=== PATIENT | male | born 1935 | race Caucasian/White ===

== ENCOUNTER 2018-09-11 20:49 | Inpatient (IN) ==
--- NOTE | 2018-09-11 21:03 | ERNOTE ---
Lower Extremity HPI - General Lower Extremities Pain: hip: right - pain Time Seen by Provider: 09/11/18 20:53 Source: patient Exam Limitations: no limitations - Immun/Allergies/Home Medications Immunizations: IMMUNIZATION HX Immunizations Up to Date Yes History of Influenza Vaccine Yes Hx Pneumococcal Vaccination No Allergies/Adverse Reactions: Allergies Allergy/AdvReac Type Severity Reaction Status Date / Time No Known Allergies Allergy Verified 09/11/18 21:05 Home Medications: HOME MEDICATIONS Atorvastatin Calcium [Lipitor] 80 mg PO DAILY 04/10/12 [Last Taken Unknown] amLODIPine BESYLATE [Norvasc] 20 mg PO DAILY 04/10/12 [Last Taken Unknown] Cholecalciferol (Vitamin D3) [Vitamin D3] 1,000 unit PO DAILY 01/29/15 [Last Taken Unknown] aspirin 81 mg tablet,delayed release 81 mg PO DAILY 03/25/18 [Last Taken Unknown] losartan 50 mg-hydrochlorothiazide 12.5 mg tablet 1 tab PO DAILY 03/25/18 [Last Taken Unknown] trazodone 100 mg tablet 100 - 200 mg PO HS tab 03/25/18 [Last Taken Unknown] tramadol 50 mg tablet 100 mg PO QID #240 tab 07/31/18 [Last Taken Unknown] - History of Present Illness Narrative: Pt was out in the barn and fell on his right hip. He was unable to get up and lay on the ground for over an hour before his came out to check on him. EMS scooped him up and gave him 100 mcg fenanyl IM due to being unable to establish IV access. Occurred: this evening Location of Incident: home Method of Injury: Reports: fell Reason for Fall: Reports: tripped Loss of Consciousness: Reports: no loss of consciousness Modifying Factors - (Improves): Reports: pain medication Modifying Factors - (Worsens): Reports: jarring, movement Associated Symptoms: Reports: unable to bear weight Other Injuries: Reports: extremities - right elbow skin tear Review of Systems - Review of Systems Constitutional: Absent: recent illness, fever EYE: Absent: vision changes ENT: Absent: nose congestion, nasal drainage Respiratory: Absent: shortness of breath Cardiology: Absent: chest pain Gastrointestinal/Abdominal: Absent: nausea, vomiting Musculoskeletal: Present: See HPI. Absent: back pain Skin: Present: change in color, other - abrasion/ skin tear Neurological: Absent: weakness, numbness, tingling Medical History (Updated 07/08/18 @ 10:43 by Layla Merritt RN) TIA (transient ischemic attack) (Resolved) Onset Date: ~07/2003 Peroneal tendonitis of left lower extremity (Resolved) Onset Date: ~01/02/17 Palpitations (Resolved) Onset Date: ~04/05/13 Myocardial infarction (Resolved) Onset Date: ~1992 Ankle pain (Chronic) Onset Date: Unknown Insomnia (Chronic) Onset Date: Unknown Hypertension (Chronic) Onset Date: Unknown Hyperlipidemia (Chronic) Onset Date: Unknown Multinodular goiter (Acute) Onset Date: ~10/21/13 Glucose intolerance (Chronic) Onset Date: Unknown GERD (gastroesophageal reflux disease) (Chronic) Onset Date: Unknown Gastric ulcer (Resolved) Onset Date: Unknown Right forearm fracture (Resolved) Onset Date: ~10/17/14 Foot pain (Chronic) Onset Date: ~05/2015 Erectile dysfunction (Chronic) Onset Date: Unknown CAD (coronary artery disease) (Chronic) Onset Date: Unknown Bradycardia (Resolved) Onset Date: ~02/16/15 Angina pectoris (Resolved) Onset Date: ~12/28/03 AAA (abdominal aortic aneurysm) Surgical History: Surgical History (Updated 07/08/18 @ 10:32 by Layla Merritt RN) History of angioplasty Onset Date: ~1997 Balloon angioplasty History of appendectomy Onset Date: Unknown History of back surgery Onset Date: Unknown laminectomy History of bilateral knee replacement Onset Date: ~2006 History of cardiac catheterization Onset Date: Unknown History of cataract extraction Onset Date: ~10/2013 bilateral History of colonoscopy Onset Date: 03/08/05 03/08/05 Peasely diverticulosis left colon. Repeat 10yrs. History of femoral angiogram Onset Date: ~05/2001 Dr. Kelly-high grade lesion in the circumflex artery and 50% lesion in the left anterior descending History of foot surgery Onset Date: ~02/2017 left History of incision and drainage Onset Date: 03/09/17 left tendon-debridement/repair History of laminectomy Onset Date: Unknown History of meniscectomy of left knee Onset Date: 11/18/04 Ty History of open reduction and internal fixation (ORIF) procedure Onset Date: 10/06/14 distal radius and ulna right Dr. Kelly Figueroa History of tonsillectomy Onset Date: Unknown Family History: Family History (Updated 07/08/18 @ 10:34 by Layla Merritt RN) Mother , age 60-brain tumor Diabetes Cancer cancerous brain tumor-age 60 Father , age 94-old age Pacemaker Brother Heart disease Sister CVA (cerebral vascular accident) 2 sisters Social History: Preferred Language French Smoking Status Former smoker (Last Updated 07/08/18 @ 14:33 by Sendy Norton DO) No Social History Section defined Physical Exam - Physical Exam General Appearance: Present: wd/wn, alert, mild distress Head Exam: Present: normal inspection, no evidence of injury Eye Exam: Normal inspection: bilateral, PERRL: bilateral, EOMI: bilateral Neck: Present: normal inspection, nontender, supple Respiratory: Present: no respiratory distress, no accessory muscle use, chest nontender, lungs clear Cardiovascular/Chest: Present: regular rate, rhythm, no murmur, normal peripheral pulses Gastrointestinal/Abdominal: Present: normal bowel sounds, nontender, nondistended, soft Extremity Exam: Present: normal except -, decreased range of motion - right hip, bony tenderness - right hip. Absent: extremity edema Neurological Exam: Present: alert, oriented, normal mood/affect, no motor/sensory deficits Skin Exam: Present: normal color, warm/dry Lymphatic Exam: Present: no adenopathy Progress - Results and Orders Patient's Lab Results:: I have reviewed the patient's lab results. Results and Orders: Laboratory Tests 09/11/18 09/11/18 21:18 21:18 WBC 18.1 H Hgb 16.5 Hct 48.8 Plt Count 184 Neutrophils % 87.7 H Sodium 143 H Potassium 3.7 Chloride 105 BUN 20 Creatinine 1.07 Random Glucose 140 H Calcium 9.7 Total Bilirubin 1.0 AST 24 ALT 32 - Vital Signs Patient's Vital Signs:: I have reviewed the patient's vital signs. - Progress/Reassessment Progress Note-Subjective: 09/11/18 22:11 I spoke with James Whitten PA-C and he agrees with admission to medicine and consult orthopedics . 09/11/18 22:[address] Farooq and she agrees with admission. Departure Clinical Impression: Fracture of hip, right, closed Qualifiers: Encounter type: initial encounter Qualified Code(s): S72.001A - Fracture of unspecified part of neck of right femur, initial encounter for closed fracture - Departure Disposition: Still a patient Condition: Good
[2018-09-11] MEDS ORDERED: ONDANSETRON HCL/PF 2 MG/ML VIAL IV ONE (21:16)
[2018-09-11] MEDS ORDERED: MORPHINE SULFATE 4 MG/ML SYRG IV ONE (21:16)
[2018-09-11] MEDS ORDERED: ONDANSETRON HCL/PF 2 MG/ML VIAL ONE (21:17)
[2018-09-11] MEDS ORDERED: MORPHINE SULFATE 4 MG/ML SYRG ONE (21:17)
[2018-09-11 21:18] LABS: Hematocrit 48.8 % (42.0-52.0); Hemoglobin 16.5 gm/dL (13.5-18.0); Mean Cell Volume 88.6 fl (78-100); Mean Corpuscular Hemoglobin 29.9 pg (27-31); Mean Corpuscular Hgb Conc 33.8 g/dl (32-36); Mean Platelet Volume 10.2 fl (8-11.3); Neutrophil # 15.9 K/mm3 (1.3-6.0); Neutrophil % 87.7 % (42-75.0); Platelet Count 184 K/mm3 (150-450); Red Blood Count 5.51 M/mm3 (4.7-6.0); Red Cell Distribution Width 13.7 % (11.5-14.0); White Blood Count 18.1 K/mm3 (4.0-10.5)
[2018-09-11 21:31] LABS: Anion Gap 12.9 mmol/L (6.8-13.8); BUN/Creatinine Ratio 18.7 (9.0-21.6); Ca. Corrected For Albumin 9.4 mg/dL (8.4-10.2); Calcium * 9.7 mg/dL (7.9-10.9); Carbon Dioxide 28.8 mmol/L (24-32.6); Potassium 3.7 mmol/L (3.4-4.6); Total Protein 7.2 gm/dL (6.2-8.2)
[2018-09-11] MEDS ORDERED: MORPHINE SULFATE 2 MG/ML DISP.SYRIN IV ONE (22:01)
[2018-09-11] MEDS ORDERED: MORPHINE SULFATE 2 MG/ML DISP.SYRIN ONE (22:02)
[2018-09-11] MEDS: MORPHINE SULFATE 2 MG/ML DISP.SYRIN IV PRN (23:24)
[2018-09-12] MEDS: MORPHINE SULFATE 2 MG/ML DISP.SYRIN IV PRN ×6 (00:50→06:49)
[2018-09-12] MEDS: RINGER'S SOLUTION,LACTATED 1,000 ML IV PRN ×3 (05:32→13:41)
[2018-09-12] MEDS ORDERED: ceFAZolin SODIUM 1 GM VIAL IV PRN (06:00)
[2018-09-12] MEDS ORDERED: TRANEXAMIC ACID 1,000 MG in NORMAL SALINE 100 ML IV PRN (06:00)
[2018-09-12] MEDS: MORPHINE SULFATE 4 MG/ML SYRG IV PRN ×5 (08:57→23:10)
--- NOTE | 2018-09-12 09:06 | HP ---
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 Towards the end of last year in our emergency room, by CT scan and ultrasound, he was found to have thickening of his gallbladder wall, with no symptoms thereafter. Last evening while working in his barn doing chores, he tripped on a mat and fell directly onto his right hip. He immediately had severe pain which has persisted. He remained unattended in the barn for over an hour, until his came to check where he was. He was brought immediately to the emergency room, where diagnosis was made, and he was treated including pain medication. His pain this morning right now is 8 which he finds intolerable. His current medication drops the pain down to 7 which he also doesn't want to permit, and the pain relief only lasts about 20 minutes. He takes tramadol for chronic osteoarthritic pain, trazodone, losartanhydrochlorothiazide, aspirin and atorvastatin. His blood pressure now is well controlled. We will wait for the rest of medications until sometime after surgery. Medical History (Updated 09/11/18 @ 21:41 by Gigi Gabriel DO) TIA (transient ischemic attack) (Resolved) Onset Date: ~07/2003 Peroneal tendonitis of left lower extremity (Resolved) Onset Date: ~01/02/17 Palpitations (Resolved) Onset Date: ~04/05/13 Myocardial infarction (Resolved) Onset Date: ~1992 Ankle pain (Chronic) Onset Date: Unknown Insomnia (Chronic) Onset Date: Unknown Hypertension (Chronic) Onset Date: Unknown Hyperlipidemia (Chronic) Onset Date: Unknown Multinodular goiter (Acute) Onset Date: ~10/21/13 Glucose intolerance (Chronic) Onset Date: Unknown GERD (gastroesophageal reflux disease) (Chronic) Onset Date: Unknown Gastric ulcer (Resolved) Onset Date: Unknown Right forearm fracture (Resolved) Onset Date: ~10/17/14 Foot pain (Chronic) Onset Date: ~05/2015 Erectile dysfunction (Chronic) Onset Date: Unknown CAD (coronary artery disease) (Chronic) Onset Date: Unknown Bradycardia (Resolved) Onset Date: ~02/16/15 Angina pectoris (Resolved) Onset Date: ~12/28/03 AAA (abdominal aortic aneurysm) Surgical History: Surgical History (Updated 07/08/18 @ 10:32 by Layla Merritt RN) History of angioplasty Onset Date: ~1997 Balloon angioplasty History of appendectomy Onset Date: Unknown History of back surgery Onset Date: Unknown laminectomy History of bilateral knee replacement Onset Date: ~2006 History of cardiac catheterization Onset Date: Unknown History of cataract extraction Onset Date: ~10/2013 bilateral History of colonoscopy Onset Date: 03/08/05 03/08/05 Peasely diverticulosis left colon. Repeat 10yrs. History of femoral angiogram Onset Date: ~05/2001 Dr. Kelly-high grade lesion in the circumflex artery and 50% lesion in the left anterior descending History of foot surgery Onset Date: ~02/2017 left History of incision and drainage Onset Date: 03/09/17 left tendon-debridement/repair History of laminectomy Onset Date: Unknown History of meniscectomy of left knee Onset Date: 11/18/04 Ty History of open reduction and internal fixation (ORIF) procedure Onset Date: 10/06/14 distal radius and ulna right Dr. Kelly Figueroa History of tonsillectomy Onset Date: Unknown Family History: Family History (Updated 07/08/18 @ 10:34 by Layla Merritt RN) Mother , age 60-brain tumor Cancer cancerous brain tumor-age 60 Diabetes Father , age 94-old age Pacemaker Brother Heart disease Sister CVA (cerebral vascular accident) 2 sisters Social History: Patient Lives/Resources Home Utilized Occupation [employer] Preferred Language Belgian Do you have any gnosticist or Yes: Protastant cultural preference? Smoking Status Never smoker Have you smoked in the past 12 No months Do you dip or chew tobacco No Alcohol Use none Drug Use none (Last Updated 07/08/18 @ 14:33 by Sendy Norton DO) No Social History Section defined Review Of Systems (GEN) - Review of Systems Generalized/Overall Review: Present: No Symptoms Reported. Absent: Chills, Fever EENTM: Absent: Eye Pain, Blurred Vision, Ear Pain, Nose Congestion, Throat Pain Respiratory: Absent: Cough, Shortness of Breath, Orthopnea Cardiac: Absent: Chest Pain, Edema Abdominal: Absent: Nausea, Constipation, Diarrhea Genitourinary: Absent: Burning, Urgency Musculoskeletal: Present: Joint Pain, Back Pain, Neck Pain, Other - Chronic back pain. Acute right hip pain. Neurological: Absent: Headache, Numbness Skin: Absent: Dryness, Rash Endocrine: Absent: Intolerance to Cold, Intolerance to Heat Misc: All systems neg except as marked Immunizations: IMMUNIZATION HX Immunizations Up to Date Yes History of Influenza Vaccine Yes Hx Pneumococcal Vaccination Yes Allergies/Adverse Reactions: Allergies Allergy/AdvReac Type Severity Reaction Status Date / Time No Known Allergies Allergy Verified 09/11/18 21:05 Home Medications: HOME MEDICATIONS Atorvastatin Calcium [Lipitor] 80 mg PO DAILY 04/10/12 [Last Taken Unknown] amLODIPine BESYLATE [Norvasc] 20 mg PO DAILY 04/10/12 [Last Taken Unknown] Cholecalciferol (Vitamin D3) [Vitamin D3] 1,000 unit PO DAILY 01/29/15 [Last Taken Unknown] aspirin 81 mg tablet,delayed release 81 mg PO DAILY 03/25/18 [Last Taken Unknown] losartan 50 mg-hydrochlorothiazide 12.5 mg tablet 1 tab PO DAILY 03/25/18 [Last Taken Unknown] trazodone 100 mg tablet 100 - 200 mg PO HS tab 03/25/18 [Last Taken Unknown] tramadol 50 mg tablet 100 mg PO QID #240 tab 07/31/18 [Last Taken Unknown] Exam - Exam Vital Signs: Vital Signs - Last Taken Temp 36.9 C 09/12/18 07:00 Pulse 80 09/12/18 07:00 Resp 12 09/12/18 07:00 BP 119/70 09/12/18 07:00 Pulse Ox 93 09/12/18 07:00 Comprehensive Narrative: 09/12/18 08:55 On admission in the ER his white blood count was 18.1, with a normal differential. His hemoglobin was 16.5, and his blood pressure in the ER was 148/78. His chemistries were really normal, with a sodium of 143 and a random glucose of 140. His O2 sats on room air have all been normal, most recent 93%, with 1 drop to 91% at 3 AM today. He is afebrile. His vitals most recently are 119/70, pulse 80, and respirations 12. His IV intake thus far is 525 ML's. He is nothing by mouth. He has a Charles catheter. His urine output thus far is at 6 AM 200 MLS. Constitutional: Present: Alert, Oriented x3, Cooperative, Well developed, Well nourished ENT Exam: Present: normal ENT inspection, hearing grossly normal, pharynx normal Eye Exam: bilateral eye: normal inspection, PERRL, EOMI Neck: Present: normal inspection. Absent: lymphadenopathy (R), lymphadenopathy (L), tender midline, thyromegaly Back Exam: Present: normal inspection, no CVA tenderness, vertebral tenderness - Low back. Chronic. Also towards the left side. Midline. Breasts: Present: Exam deferred Respiratory: Present: lungs clear, normal breath sounds Cardiovascular/Chest: Present: normal peripheral pulses, regular rate, rhythm, no edema, no gallop, no JVD, no murmur Peripheral Pulses: carotid (R): 1+, carotid (L): 1+ Abdomen: Present: Normal bowel sounds, soft, nontender, nondistended, no rebound tenderness, no hepatospenomegaly, no masses /Rectal: Present: Exam deferred - Charles catheter in place Extremity: Present: no calf tenderness, normal capillary refill, other - Externally rotated right leg. Posterolateral right hip tenderness. No bruising. Skin Exam: Present: normal color, warm/dry, no cyanosis Lymphatic: Present: no adenopathy Neurologic: Present: no motor/sensory deficits, normal mood/affect Appearance: Present: appropriate appearance Eye contact: Present: cooperative, good eye contact, normal speech Thoughts: Present: normal thought pattern Diagnostic Studies: Abnormal Lab Results 09/11/18 09/11/18 Range/Units 21:18 21:18 WBC 18.1 H (4.0-10.5) K/mm3 Immature Gran # (Auto) 0.07 H (0.000-0.0310) K/mm3 Neutrophils % 87.7 H (42-75.0) % Lymphocytes % 5.2 L (20-51) % Neutrophils # 15.9 H (1.3-6.0) K/mm3 Lymphocytes # 0.95 L (1.5-3.5) k/mm3 Monocytes # 1.1 H (0.0-1.0) k/mm3 Sodium 143 H (132-142) mmol/L Plasma Sodium 144 H (130-142) mmol/L Random Glucose 140 H (70-110) mg/dL Laboratory Results WBC 18.1 K/mm3 (4.0-10.5) H 09/11/18 21:18 RBC 5.51 M/mm3 (4.7-6.0) 09/11/18 21:18 Hgb 16.5 gm/dL (13.5-18.0) 09/11/18 21:18 Hct 48.8 % (42.0-52.0) 09/11/18 21:18 MCV 88.6 fl (78-100) 09/11/18 21:18 MCH 29.9 pg (27-31) 09/11/18 21:18 MCHC 33.8 g/dl (32-36) 09/11/18 21:18 RDW 13.7 % (11.5-14.0) 09/11/18 21:18 Plt Count 184 K/mm3 (150-450) 09/11/18 21:18 MPV 10.2 fl (8-11.3) 09/11/18 21:18 Immature Gran % (Auto) 0.40 % (0.001-0.429) 09/11/18 21:18 Immature Gran # (Auto) 0.07 K/mm3 (0.000-0.0310) H 09/11/18 21:18 87.7 % (42-75.0) H 09/11/18 21:18 5.2 % (20-51) L 09/11/18 21:18 6.0 % (0.0-9) 09/11/18 21:18 0.3 % (0.0-3.0) 09/11/18 21:18 0.4 % (0.0-1.0) 09/11/18 21:18 Nucleated RBC % 0.0 k/mm3 (0-1) 09/11/18 21:18 15.9 K/mm3 (1.3-6.0) H 09/11/18 21:18 0.95 k/mm3 (1.5-3.5) L 09/11/18 21:18 1.1 k/mm3 (0.0-1.0) H 09/11/18 21:18 0.1 k/mm3 (0.0-0.7) 09/11/18 21:18 Absolute Basophils 0.1 k/mm3 (0.0-0.1) 09/11/18 21:18 Sodium 143 mmol/L (132-142) H 09/11/18 21:18 144 mmol/L (130-142) H 09/11/18 21:18 Potassium 3.7 mmol/L (3.4-4.6) 09/11/18 21:18 Chloride 105 mmol/L (97-106) 09/11/18 21:18 Carbon Dioxide 28.8 mmol/L (24-32.6) 09/11/18 21:18 12.9 mmol/L (6.8-13.8) 09/11/18 21:18 BUN 20 mg/dL (6-23) 09/11/18 21:18 1.07 mg/dL (0.4-1.4) 09/11/18 21:18 Est GFR (Non-Af Amer) 71 mL/min (60-130) 09/11/18 21:18 18.7 (9.0-21.6) 09/11/18 21:18 140 mg/dL (70-110) H 09/11/18 21:18 Calcium 9.7 mg/dL (7.9-10.9) 09/11/18 21:18 Calcium Adj for Albumin 9.4 mg/dL (8.4-10.2) 09/11/18 21:18 1.0 mg/dL (0.0-1.1) 09/11/18 21:18 AST 24 U/L (0-48) 09/11/18 21:18 ALT 32 U/L (19-67) 09/11/18 21:18 117 U/L (50-170) 09/11/18 21:18 7.2 gm/dL (6.2-8.2) 09/11/18 21:18 4.0 gm/dl (3.4-5.0) 09/11/18 21:18 Assessment/Plan - Assessment/Plan (1) Fracture of femoral neck, right, closed Assessment: There are no contraindications to the intended surgery, which may proceed as planned. He is at higher than normal risk due to his age plus atherosclerotic cardiovascular disease. Problem: Acute Qualifiers: Encounter type: initial encounter Qualified Code(s): S72.001A - Fracture of unspecified part of neck of right femur, initial encounter for closed fracture (2) Acute pain due to trauma Assessment: I spoke with his nurse. We will increase his morphine because of inadequate pain control 2 mg IV every hour to 3 mg IV every hour. His nurse will let me know if this is inadequate. Problem: Acute (3) Chronic intractable pain Problem: Chronic (4) Osteoarthritis Problem: Chronic Qualifiers: Osteoarthritis location: multiple joints Osteoarthritis type: primary Qualified Code(s): M15.0 - Primary generalized (osteo)arthritis (5) Hypertension Problem: Chronic Qualifiers: Hypertension type: essential hypertension (6) Hyperlipidemia Problem: Chronic Qualifiers: Hyperlipidemia type: mixed hyperlipidemia (7) CAD (coronary artery disease) Assessment: History of angioplasty. Also distant history of CVA. Problem: Chronic Qualifiers: Coronary Disease-Associated Artery/Lesion type: [place] artery (8) Abdominal aortic aneurysm (AAA) Assessment: Stable Problem: Chronic Qualifiers: Presence of rupture: without rupture
--- NOTE | 2018-09-12 10:45 | CONS ---
[facility] - General Date of Service: 09/12/18 Narrative: Patient presents to ER s/p a fall with right hip pain. XR revealed a right femoral neck fracture. Patient was admitted to the hospital. He notes his pain is well controlled, worse with movement, better with rest. He is currently not ate anything since last night. Source: patient - History of Present Illness Allergies/Adverse Reactions: Allergies No Known Allergies Allergy (Verified 09/11/18 21:05) Home Medications: Home Medications Medication Instructions Recorded Last Taken Atorvastatin Calcium [Lipitor] 80 mg PO DAILY 04/10/12 Unknown amLODIPine BESYLATE [Norvasc] 20 mg PO DAILY 04/10/12 Unknown Cholecalciferol (Vitamin D3) 1,000 unit PO DAILY 01/29/15 Unknown [Vitamin D3] aspirin 81 mg tablet,delayed 81 mg PO DAILY 03/25/18 Unknown release losartan 50 mg-hydrochlorothiazide 1 tab PO DAILY 03/25/18 Unknown 12.5 mg tablet trazodone 100 mg tablet 100 - 200 mg PO HS tab 03/25/18 Unknown tramadol 50 mg tablet 100 mg PO QID #240 tab 07/31/18 Unknown Procedures Closure of skin and subcutaneous tissue of other sites (07/01/03) Colonoscopy (03/08/05) Excision of semilunar cartilage of knee (11/18/04) Injection of anesthetic into spinal canal for analgesia (02/22/11) Injection of other agent into spinal canal (02/22/11) Injection of steroid (02/22/11) Other x-ray of lumbosacral spine (02/22/11) Medications - Medications Current Medications: Current Medications Lactated Ringer's (Lactated Ringers) 1,000 mls @ 175 mls/hr IV .[id number] PRN PRN Reason: HYDRATION Stop: 09/12/18 23:59 Last Admin: 09/12/18 05:32 Dose: 175 mls/hr Documented by: Morphine Sulfate (Morphine Sulfate) 3 mg IV Q1H PRN PRN Reason: Pain Stop: 10/11/18 23:20 Last Admin: 09/12/18 10:05 Dose: 3 mg Documented by: Physical Examination - Exam Vital Signs: Vital Signs - Last Taken Temp 37 C 09/12/18 10:32 Pulse 79 09/12/18 10:32 Resp 14 09/12/18 10:32 BP 129/71 09/12/18 10:32 Pulse Ox 92 L 09/12/18 10:32 O2 Oxygen Delivery Method Room Air Constitutional: Present: Alert, Cooperative, No distress Respiratory: Present: no respiratory distress Extremity: Present: other - RLE--> no obvious wounds, diffuse ttp over right hip region, mild swelling diffusely, SILT, distal capillary refill brisk Appearance: Present: appropriate appearance Eye contact: Present: cooperative Thoughts: Present: normal thought pattern - Results and Findings: Lab/Microbiology results last 24 hrs: Abnormal/Pending Laboratory Last 24 HRS 09/11/18 09/11/18 21:18 21:18 WBC 18.1 H Immature Gran # (Auto) 0.07 H Neutrophils % 87.7 H Lymphocytes % 5.2 L Neutrophils # 15.9 H Lymphocytes # 0.95 L Monocytes # 1.1 H Sodium 143 H Plasma Sodium 144 H Random Glucose 140 H - Assessments/Findings (1) Fracture of femoral neck, right, closed Problem: Acute Qualifiers: Encounter type: initial encounter Qualified Code(s): S72.001A - Fracture of unspecified part of neck of right femur, initial encounter for closed fracture Plan - Plan Plan: -82 y/o male presents s/p a fall with a right femoral neck fracture. Discussed risk vs. benefits including all treatment options. Patient wishes to proceed with surgical intervention of a right hip hemiarthroplasty vs total hip arthroplasty of femoral neck fracture. Consent was obtained, all patients questions were answered. Patient PCP has seen patient as elevated risk due to age and coronary disease, but states no contraindications to proceeding with surgical intervention. Patient will undergo surgery on 09/12/18. Patient will continue inpatient stay s/p surgery.
--- NOTE | 2018-09-12 10:57 | ANES ---
Anesthesia Pre Procedure Eval Vitals/Labs: Last Vital Signs Temp 37 C 09/12/18 10:32 Pulse 79 09/12/18 10:32 Resp 14 09/12/18 10:32 BP 129/71 09/12/18 10:32 Pulse Ox 92 L 09/12/18 10:32 HOME MEDICATIONS Atorvastatin Calcium [Lipitor] 80 mg PO DAILY 04/10/12 [Last Taken Unknown] amLODIPine BESYLATE [Norvasc] 20 mg PO DAILY 04/10/12 [Last Taken Unknown] Cholecalciferol (Vitamin D3) [Vitamin D3] 1,000 unit PO DAILY 01/29/15 [Last Taken Unknown] aspirin 81 mg tablet,delayed release 81 mg PO DAILY 03/25/18 [Last Taken Unknown] losartan 50 mg-hydrochlorothiazide 12.5 mg tablet 1 tab PO DAILY 03/25/18 [Last Taken Unknown] trazodone 100 mg tablet 100 - 200 mg PO HS tab 03/25/18 [Last Taken Unknown] tramadol 50 mg tablet 100 mg PO QID #240 tab 07/31/18 [Last Taken Unknown] Allergies/Adverse Reactions: Allergies Allergy/AdvReac Type Severity Reaction Status Date / Time No Known Allergies Allergy Verified 09/11/18 21:05 - Planned Procedure Planned Procedure: Right DEO Medication List Reviewed:: Yes Allergies Verified: Yes Medical History (Updated 09/12/18 @ 09:06 by Mauricio Kirby MD) TIA (transient ischemic attack) (Resolved) Onset Date: ~07/2003 Peroneal tendonitis of left lower extremity (Resolved) Onset Date: ~01/02/17 Palpitations (Resolved) Onset Date: ~04/05/13 Myocardial infarction (Resolved) Onset Date: ~1992 Ankle pain (Chronic) Onset Date: Unknown Insomnia (Chronic) Onset Date: Unknown Hypertension (Chronic) Onset Date: Unknown Hyperlipidemia (Chronic) Onset Date: Unknown Multinodular goiter (Acute) Onset Date: ~10/21/13 Glucose intolerance (Chronic) Onset Date: Unknown GERD (gastroesophageal reflux disease) (Chronic) Onset Date: Unknown Gastric ulcer (Resolved) Onset Date: Unknown Right forearm fracture (Resolved) Onset Date: ~10/17/14 Foot pain (Chronic) Onset Date: ~05/2015 Erectile dysfunction (Chronic) Onset Date: Unknown CAD (coronary artery disease) (Chronic) Onset Date: Unknown Bradycardia (Resolved) Onset Date: ~02/16/15 Angina pectoris (Resolved) Onset Date: ~12/28/03 AAA (abdominal aortic aneurysm) Surgical History (Updated 09/12/18 @ 09:06 by Mauricio Kirby MD) History of angioplasty Onset Date: ~1997 Balloon angioplasty History of appendectomy Onset Date: Unknown History of back surgery Onset Date: Unknown laminectomy History of bilateral knee replacement Onset Date: ~2006 History of cardiac catheterization Onset Date: Unknown History of cataract extraction Onset Date: ~10/2013 bilateral History of colonoscopy Onset Date: 03/08/05 03/08/05 Peasely diverticulosis left colon. Repeat 10yrs. History of femoral angiogram Onset Date: ~05/2001 Dr. Kelly-high grade lesion in the circumflex artery and 50% lesion in the left anterior descending History of foot surgery Onset Date: ~02/2017 left History of incision and drainage Onset Date: 03/09/17 left tendon-debridement/repair History of laminectomy Onset Date: Unknown History of meniscectomy of left knee Onset Date: 11/18/04 Ty History of open reduction and internal fixation (ORIF) procedure Onset Date: 10/06/14 distal radius and ulna right Dr. Kelly Figueroa History of tonsillectomy Onset Date: Unknown Family History (Updated 07/08/18 @ 10:34 by Layla Merritt RN) Mother , age 60-brain tumor Cancer cancerous brain tumor-age 60 Diabetes Father , age 94-old age Pacemaker Brother Heart disease Sister CVA (cerebral vascular accident) 2 sisters - Family Anesthesia History Family History:: no untoward family reactions to anesthesia, no familial bleeding tendencies, no family history of clotting disorders, no family history of premature - Airway/Neck/Teeth Within Normal Limits:: Yes Teeth Condition: intact Mallampatti Score: 3 Thyromental (T-M) distance: > 6 cm Mandibulo Hyoid distance: > 3 cm - Respiratory Respiratory Physical: lungs clear Smoking Status: Never smoker Discussed smoking cessation including day of surgery: No Sleep Apnea currently treated: No Sleep Apnea by current assessment: No Discussed Risks/Treatment of JOSE F: No - Cardiovascular Tolerate Activity: Fair Heart Sounds: S1 & S2, Regular - Anesthesia Assessment and Plan ASA Class: PS, III Anesthesia Type Plan: Spinal
--- NOTE | 2018-09-12 15:27 | ANES ---
Post Anesthesia Discharge - Transfer of Care Transfer of Care handoff given to nurse: Yes - Discharge from PACU Discharge from PACU when meets criteria: Yes - Discharge to ASU Discharge to ASU-no complications/pt stable: Yes
--- NOTE | 2018-09-12 15:28 | ANES ---
Post Anesthesia Assessment - Vital Signs Vitals: Last Vital Signs Temp 37 C 09/12/18 10:32 Pulse 79 09/12/18 10:32 Resp 14 09/12/18 10:32 BP 129/71 09/12/18 10:32 Pulse Ox 92 L 09/12/18 10:32 Airway Patency: Normal - Mental Status Level Of Consciousness: Awake - Pain Level Pain Score: 0 - N/V Assessment Nausea/Vomiting Presence: None Dehydration:: No
[2018-09-12] MEDS ORDERED: MAGNESIUM HYDROXIDE 30 ML UDC PO PRN (15:36)
[2018-09-12] MEDS ORDERED: MAG HYDROX/ALUMINUM HYD/SIMETH 30 ML UDC PO PRN (15:36)
[2018-09-12] MEDS ORDERED: MORPHINE SULFATE 2 MG/ML DISP.SYRIN IV PRN (15:36)
[2018-09-12] MEDS ORDERED: diphenhydrAMINE HCL 50 MG/ML VIAL IV PRN (15:36)
[2018-09-12] MEDS ORDERED: ACETAMINOPHEN 500 MG TABLET PO PRN (15:36)
[2018-09-12] MEDS ORDERED: ONDANSETRON HCL/PF 2 MG/ML VIAL IV PRN (15:36)
[2018-09-12] MEDS ORDERED: oxyCODONE HCL/ACETAMINOPHEN 1 TAB TABLET PO PRN (15:43)
[2018-09-12] MEDS ORDERED: RINGER'S SOLUTION,LACTATED 1,000 ML IV PRN (16:37)
[2018-09-12] MEDS: ceFAZolin SODIUM 2 GM in DEXTROSE 5 % IN WATER 50 ML IV SCH ×4 (17:59→23:47)
[2018-09-12] MEDS: oxyCODONE HCL/ACETAMINOPHEN 1 TAB TABLET PO PRN ×2 (18:09→22:24)
[2018-09-12] MEDS: SENNOSIDES/DOCUSATE SODIUM 1 TAB TABLET PO SCH (21:20)
[2018-09-12] MEDS: ZOLPIDEM TARTRATE 5 MG TABLET PO PRN (23:46)
[2018-09-13] MEDS: ZOLPIDEM TARTRATE 5 MG TABLET PO PRN (02:00)
[2018-09-13] MEDS: oxyCODONE HCL/ACETAMINOPHEN 1 TAB TABLET PO PRN ×5 (02:35→23:01)
[2018-09-13 05:11] LABS: Hemoglobin 13.5 gm/dL (13.5-18.0); Mean Cell Volume 90.9 fl (78-100); Mean Corpuscular Hemoglobin 29.9 pg (27-31); Mean Corpuscular Hgb Conc 32.9 g/dl (32-36); Mean Platelet Volume 10.3 fl (8-11.3); Neutrophil # 9.4 K/mm3 (1.3-6.0); Neutrophil % 80.3 % (42-75.0); Platelet Count 126 K/mm3 (150-450); Red Blood Count 4.51 M/mm3 (4.7-6.0); Red Cell Distribution Width 13.7 % (11.5-14.0); White Blood Count 11.7 K/mm3 (4.0-10.5)
[2018-09-13 05:25] LABS: Anion Gap 12.3 mmol/L (6.8-13.8); BUN/Creatinine Ratio 12.3 (9.0-21.6); Calcium * 7.9 mg/dL (7.9-10.9); Carbon Dioxide 30.3 mmol/L (24-32.6); Potassium 3.6 mmol/L (3.4-4.6)
[2018-09-13] MEDS: ceFAZolin SODIUM 2 GM in DEXTROSE 5 % IN WATER 50 ML IV SCH ×6 (05:40→17:57)
--- NOTE | 2018-09-13 11:40 | OR ---
Operative Report - Dictated Report Narrative: Date: 09/12/2018 Preoperative diagnosis: Displaced right femoral neck fracture Postoperative diagnosis: Displaced right femoral neck fracture Procedure: Right total hip arthroplasty Surgeon: Jake Tamayo M.D. Health Promotion Educator: James Whitten PA-C provided a set of skilled surgical hands to assist with retraction, implant placement, and wound closure. There were no other available surgical assistants in the OR. Anesthesia: Spinal Complications: None Specimens: Bone for disposal. Estimated blood loss: 200 milliliters. Retained implants: Depuy Corail size 12 femoral stem high offset. Size 54 millimeter ouside diameter 3-hole [place] Gription acetabular cup. 54 millimeter outside by 36 millimeter inside diameter highly cross-linked acetabular liner. 36 millimeter diameter + 15.5 millimeter cobalt chromium femoral head. Cancellous 6.5mm screw 30 millimeter length Indications: Aj is a 82-year-old male community ambulator who lives independently who fell from standing height resulting in a injury to the right hip. Plain films in the emergency department demonstrated a displaced femoral neck fracture. I counseled him on treatment options and given his age, activity level, and good health, I recommended total hip arthroplasty. Patient wished to proceed with surgical treatment. The risks, benefits, and alternatives were discussed in clinic. The risks of , blood clots, bleeding, infection, nerve/tendon blood vessel/ injury, malposition of components, dislocation and/or instability of joint, intraoperative fracture, postoperative limited range of motion, persistent pain, failure of components, and need for additional procedures. Patient wished to proceed. Consent was obtained after answering all questions. Procedure: After marking the correct extremity on the floor, the patient was taken to the operating room. A timeout was performed. IV antibiotics consisting of 2 g of Ancef were administered prior to the procedure. A spinal anesthetic was induced by anesthesia. A Charles catheter was inserted. The patient was then transitioned to a lateral position on a well-padded pegboard. And an axillary roll was placed. The head was in neutral position. The non- operative down leg was well-padded with SCD and BHAVNA hose in place. The arms were supported and padded to protect from any undue pressure on the bony prominences and nerves. Well-padded anterior and posterior pelvic and chest posts were secured in order to maintain a stable position of the pelvis. This was placed so that the pelvis was perpendicular to the floor. The body was in line with the pelvis. Once it was felt that we had protected all the bony prominences and the patient was well secured with a safety belt as well, the leg was pre-scrubbed with alcohol, prepped and draped in a standard sterile fashion. A standard anterior lateral hip incision was marked out over the greater trochanter. Ioban drapes were then placed. The skin incision was then made. Sharp dissection with a scalpel utilizing cautery for hemostasis was carried out down to the gluteus and iliotibial band fascia. This was split in line with the skin incision. The greater trochanter bursa was excised. The anterior and posterior margins of the abductor tendon were identified. The anterior 1/3 of the tendon was tagged and reflected off the greater trochanter leaving a sleeve of tendon for repair at the completion of the case. This exposed the underlying hip joint capsule. A limb length stitch was placed in the skin and referenced off a corina on the greater trochanter for evaluation of intraoperative limb lengths. An inverted T-type capsulotomy was made extending this up to the brim of the acetabulum. Hematoma was encountered and evacuated. Using Homans to assist with elevation of the soft tissues off the anterior, superior, and inferior aspects of the femoral neck, the hip was then placed in a figure 4 position, revealing the fractured femoral neck. With the leg in an externally rotated and adducted position, the cutting flag was utilized in order to corina for a cleanup femoral neck cut approximately a fingerbreadth above the level of the lesser trochanter. This was done while protecting the surrounding soft tissues with Homans. The femoral head was then removed with a corkscrew and sized for guidance on preparation of the acetabulum. It was noted that there was loss of articular cartilage on both the femoral head and weightbearing portions of the acetabulum. We then returned the leg to the table and turned our attention to the acetabulum. While protecting the surrounding soft tissues, the labrum and remaining tissue in the fovea were excised using a scalpel and cautery. A series of reamers up to size 53 millimeter were utilized to prepare the acetabulum. The final reamer had good purchase and exposed the bleeding subchondral bone. The acetabulum was then thoroughly irrigated ensuring that all bony and cartilaginous materials were removed and the final acetabular shell was impacted into place. This was placed in approximately 45 degrees of abduction and 20 degrees of anteversion utilizing the outrigger and body axis for alignment. This had a good press fit. One 30 x 6.5mm cancellous screw was placed in the posterior superior quadrant of the acetabulum. The shell was then thoroughly irrigated and the final polyethylene was impacted into place ensuring that it seated completely. This was then protected with a sponge while we returned our attention to the femur. With the leg in a figure 4 position utilizing Homans for soft tissue protection, a box cutting osteotome, followed by [place]y awl, followed by serial broaches were utilized in order to prepare the femur. It was found that a size 12 broach gave good axial and rotational stability. The calcar reamer was utilized in order to clean up the cut edges. The proximal femur was visualized to ensure that there were no signs of fracture. A series of heads and necks were trialed. It was found that a high offset neck and a + 15.5 mm femoral head gave good overall stability. There is minimal longitudinal instability. With the leg in the position of sleep the femoral head was well covered. Hip range of motion was able to reach full extension and external rotation to greater than 75 degrees prior to impingement along the posterior acetabulum. The hip was able to be flexed to greater than 90 degrees with internal rotation greater than 60 degrees prior to anterior impingement. The limb lengths were near equal based on comparison to the contralateral side in the prior placed limb length stitch. At this point was felt this was the appropriately sized femoral components as well as neck and femoral head. The trial implants were removed. The femur was thoroughly irrigated. The final implants were impacted in the place and the hip was reduced. After ensuring that there was no damage to the proximal femur, the standard periarticular joint injection of ropivacaine, Toradol, and epinephrine were injected into the joint capsule and surrounding soft tissues. The capsule was repaired with interrupted #1 Vicryl. The abductor tendon was repaired utilizing #5 Ethibond. This was oversewn with #1 Vicryl. The fascia was closed with #1 Stratafix PDS. The wounds were thoroughly irrigated as we closed in layers. The deep fat layers were closed with 0 Stratafix PDS. The subcutaneous tissue was closed with interrupted 3-0 Vicryl and the skin with gómez. All sponge, needle, blade, and instrument counts were correct prior to closing the wounds. Sterile dressings consisting of Xeroform, 4 x 4's, ABD, and tape were applied. The patient was awoken and transferred to her hospital bed and then to the postanesthesia care unit in stable condition. Postoperative condition: The plan is to admit to the medical/surgical inpatient floor postoperatively. There will be a projected 2 to 4 day hospital stay. Postoperatively 24 hours of IV antibiotics, pain control, physical therapy, occupational therapy, and medical comanagement will be utilized. Patient will be weightbearing as tolerated with anterior hip precautions. Postoperative films will be obtained in the recovery room.
--- NOTE | 2018-09-13 11:50 | PN ---
Subjective - Date and Time Seen Date: 09/13/18 Time: 07:45 Subjective Narrative: Patient reports no acute events. He notes he has had significant pain overnight, has had to take significant amount of pain medication. He notes his pain is currently moderate, he has been up to chair. Note he notes no other acute symptoms currently. He notes his pain is worse with weightbearing better with rest. Objective - Vitals Vitals: Last Vital Signs Temp 37.2 C 09/13/18 10:39 Pulse 94 09/13/18 10:39 Resp 12 09/13/18 10:39 BP 141/70 09/13/18 10:39 Pulse Ox 94 09/13/18 10:39 - Abnormal Lab Findings Abnormal Lab Findings: Abnormal Lab Results 09/13/18 09/13/18 Range/Units 05:03 05:03 WBC 11.7 H D (4.0-10.5) K/mm3 RBC 4.51 L (4.7-6.0) M/mm3 Hct 41.0 L (42.0-52.0) % Plt Count 126 L (150-450) K/mm3 Immature Gran # (Auto) 0.04 H (0.000-0.0310) K/mm3 Neutrophils % 80.3 H (42-75.0) % Lymphocytes % 6.6 L (20-51) % Monocytes % 9.7 H (0.0-9) % Neutrophils # 9.4 H (1.3-6.0) K/mm3 Lymphocytes # 0.77 L (1.5-3.5) k/mm3 Monocytes # 1.1 H (0.0-1.0) k/mm3 Random Glucose 131 H (70-110) mg/dL - Exam Constitutional: Present: Alert, Cooperative, No distress Respiratory: Present: no respiratory distress Extremity: Present: other - RLE--> bandages clean/dry/intact, distal sensation intact light touch, distal capillary refill brisk, diffuse tenderness about right hip, post-operative swelling moderate Appearance: Present: appropriate appearance Eye contact: Present: cooperative Thoughts: Present: normal thought pattern Cauti Physician Documentation - Urinary Catheter Management Urethral (Charles) Date of Insertion: 09/11/18 Time of Insertion: 23:30 Date of Removal: 09/13/18 Time of Removal: 05:45 Assessment/Plan Plan Narrative: - 82 y/o male postop day 1 status post a right hip total arthroplasty after a fall with a right hip femoral neck fracture -Weightbearing as tolerated, assistive device as needed, anterior precautions -P.o. diet as tolerated -P.o. pain medication as needed -PT/OT progress as tolerated -Maintain postoperative dressings in place -DVT prophylaxis: Lovenox, SCDs in bed, BHAVNA hose -Chronic medical conditions per medicine -Disposition: We will discuss with patient discharge home with home health versus jail facility for therapy, will monitor PT goals and p rogression, continue to work for pain control with p.o. pain medication, once all goals are met will determine home versus jail facility - Problems/Diagnosis (1) Fracture of femoral neck, right, closed Problem: Acute Qualifiers: Encounter type: initial encounter Qualified Code(s): S72.001A - Fracture of unspecified part of neck of right femur, initial encounter for closed fracture
[2018-09-13] MEDS ORDERED: MORPHINE SULFATE 4 MG/ML SYRG IV PRN (12:37)
--- NOTE | 2018-09-13 12:50 | PN ---
Subjective - Date and Time Seen Date: 09/13/18 Time: 08:15 Subjective Narrative: Generally doing well. He is ready to eat. His pain is less than it was yesterday when it was 8-10. Now it is 6-8, worse when up, better when lying down, still with incidental pain. The pain medication is lasting for only a short period of time, perhaps 1/2-hour or so. He finds his current pain level better than yesterday but still unsatisfactory. He would prefer his pain level 4-5. He has had no side effects from his IV morphine thus far. Objective - Review of Systems Generalized/Overall Review: Reports: No Symptoms Reported EENTM: Denies: Eye Pain, Blurred Vision Respiratory: Denies: Cough, Shortness of Breath Cardiac: Denies: Chest Pain, Edema Abdominal: Denies: Nausea, Abdominal Pain, Constipation Genitourinary Symptoms: Denies: Burning, Urgency Neurological: Denies: Anxiety, Depressed, Parasthesia Skin: Denies: Dryness, Rash Endocrine: Reports: No Symptoms Reported Misc: All systems neg except as marked - Vitals Vitals: Last Vital Signs Temp 37.2 C 09/13/18 10:39 Pulse 94 09/13/18 10:39 Resp 12 09/13/18 10:39 BP 141/70 09/13/18 10:39 Pulse Ox 94 09/13/18 10:39 - Abnormal Lab Findings Abnormal Lab Findings: Abnormal Lab Results 09/13/18 09/13/18 Range/Units 05:03 05:03 WBC 11.7 H D (4.0-10.5) K/mm3 RBC 4.51 L (4.7-6.0) M/mm3 Hct 41.0 L (42.0-52.0) % Plt Count 126 L (150-450) K/mm3 Immature Gran # (Auto) 0.04 H (0.000-0.0310) K/mm3 Neutrophils % 80.3 H (42-75.0) % Lymphocytes % 6.6 L (20-51) % Monocytes % 9.7 H (0.0-9) % Neutrophils # 9.4 H (1.3-6.0) K/mm3 Lymphocytes # 0.77 L (1.5-3.5) k/mm3 Monocytes # 1.1 H (0.0-1.0) k/mm3 Random Glucose 131 H (70-110) mg/dL - Exam Exam Narrative: Initial white count in the emergency room was 18.1. 87.7% neutrophils. Hemoglobin was 16.5. Sodium 143, chloride 105, potassium 3.7 and CO2 28.8. Today white blood count 11.7, 80.3% polys, hemoglobin 13.5, 2 days ago platelet count 184, today 126, sodium 139, potassium 3.6, chloride 100, and CO2 30.3. With the time being I attribute the drop in his hemoglobin to increase fluids and repair of hip and less pain. Not sure why he has a lower platelet count, but we will recheck all of this tomorrow with a hemogram. Today his temperature was 37.6, pulse 92, BP 152/72 respiratory rate 16 and O2 sat 92% on room air. Constitutional: Present: Alert, Oriented x3, Cooperative, Well developed, Well nourished, No distress ENT Exam: Present: normal ENT inspection, hearing grossly normal Neck: Present: normal inspection. Absent: lymphadenopathy (R), lymphadenopathy (L), thyromegaly Respiratory: Present: lungs clear, normal breath sounds, no respiratory distress Cardiovascular/Chest: Present: normal peripheral pulses, regular rate, rhythm, no edema, no gallop, no JVD, no murmur Abdomen: Present: Normal bowel sounds, soft, nontender, nondistended, no hepatospenomegaly, no masses Extremity: Present: no calf tenderness, other - Pain with movement of his right leg and his hip. Skin Exam: Present: normal color, warm/dry, no cyanosis Neurologic: Present: abnormal gait Appearance: Present: appropriate appearance, appropriate insight, neat, no memory impairment Eye contact: Present: cooperative, good eye contact, normal speech Thoughts: Present: normal thought pattern Cauti Physician Documentation - Urinary Catheter Management Urethral (Charles) Date of Insertion: 09/11/18 Time of Insertion: 23:30 Date of Removal: 09/13/18 Time of Removal: 05:45 Assessment/Plan - Problems/Diagnosis (1) Fracture of femoral neck, right, closed Problem: Acute Qualifiers: Encounter type: initial encounter Qualified Code(s): S72.001A - Fracture of unspecified part of neck of right femur, initial encounter for closed fracture (2) Acute pain due to trauma Problem: Acute Narrative: Pain is improved since yesterday, but is not improved enough by his report. We will adjust slightly his morphine dose and frequency. (3) Chronic intractable pain Problem: Chronic (4) Osteoarthritis Problem: Chronic Qualifiers: Osteoarthritis location: multiple joints Osteoarthritis type: primary Qualified Code(s): M15.0 - Primary generalized (osteo)arthritis (5) Hypertension Problem: Chronic Qualifiers: Hypertension type: essential hypertension (6) Hyperlipidemia Problem: Chronic Qualifiers: Hyperlipidemia type: mixed hyperlipidemia (7) CAD (coronary artery disease) Problem: Chronic Qualifiers: Coronary Disease-Associated Artery/Lesion type: [place] artery (8) Abdominal aortic aneurysm (AAA) Problem: Chronic Qualifiers: Presence of rupture: without rupture (9) Thrombocytopenia Problem: Acute Narrative: Uncertain cause. Will repeat by doing a hemogram tomorrow. (10) Anemia Problem: Acute Narrative: Because of anemia probably fluids. Will check a hemogram tomorrow.
[2018-09-13] MEDS: ENOXAPARIN SODIUM 40 MG/0.4 ML SYRG SC SCH (14:14)
[2018-09-13] MEDS: SENNOSIDES/DOCUSATE SODIUM 1 TAB TABLET PO SCH (20:30)
[2018-09-14] MEDS: ceFAZolin SODIUM 2 GM in DEXTROSE 5 % IN WATER 50 ML IV SCH ×8 (01:23→17:05)
[2018-09-14] MEDS: oxyCODONE HCL/ACETAMINOPHEN 1 TAB TABLET PO PRN ×5 (04:29→22:30)
[2018-09-14 06:07] LABS: Hematocrit 37.5 % (42.0-52.0); Hemoglobin 12.6 gm/dL (13.5-18.0); Mean Cell Volume 89.9 fl (78-100); Mean Corpuscular Hemoglobin 30.2 pg (27-31); Mean Corpuscular Hgb Conc 33.6 g/dl (32-36); Mean Platelet Volume 10.9 fl (8-11.3); Platelet Count 119 K/mm3 (150-450); Red Blood Count 4.17 M/mm3 (4.7-6.0); Red Cell Distribution Width 13.7 % (11.5-14.0); White Blood Count 14.8 K/mm3 (4.0-10.5)
[2018-09-14 06:18] LABS: Anion Gap 9.2 mmol/L (6.8-13.8); BUN/Creatinine Ratio 11.1 (9.0-21.6); Calcium * 8.2 mg/dL (7.9-10.9); Carbon Dioxide 30.3 mmol/L (24-32.6); Estimated Creat Clear 65.3; Potassium 3.5 mmol/L (3.4-4.6)
[2018-09-14 06:46] LABS: Total Cells Counted 100
[2018-09-14 06:50] LABS: Eosinophil 2 % (0-3); Lymphocyte 7 % (20-51); Monocyte 13 % (0-9); Neutrophil 78 % (42-75); Neutrophil # 11.5 K/mm3 (1.3-6.0); Platelet Estimate Decreased (NORMAL)
[2018-09-14 06:53] LABS: Dohle Bodies 1+
[2018-09-14 06:54] LABS: RBC Morphology Normal (NORMAL)
--- NOTE | 2018-09-14 08:25 | PN ---
Subjective - Date and Time Seen Date: 09/14/18 Time: 08:16 Subjective Narrative: Patient working with PT. going to [facility] on Sunday. Tmax 37.9. WBC 14.8, plt 119, Hb 12.6. Objective - Review of Systems Generalized/Overall Review: Denies: Chills, Fever EENTM: Denies: Blurred Vision Respiratory: Denies: Cough, Shortness of Breath, Orthopnea Cardiac: Denies: Chest Pain, Edema, Palpitations Abdominal: Denies: Nausea, Vomiting Genitourinary Symptoms: Denies: Urgency, Frequency Musculoskeletal Complaints: Reports: Joint Pain Neurological: Denies: Headache Skin: Denies: Lesions, Rash Endocrine: Denies: Intolerance to Cold, Intolerance to Heat Misc: All systems neg except as marked - Vitals Vitals: Last Vital Signs Temp 37.1 C 09/14/18 06:56 Pulse 91 09/14/18 06:56 Resp 20 09/14/18 06:56 BP 139/78 09/14/18 06:56 Pulse Ox 93 09/14/18 06:56 - Abnormal Lab Findings Abnormal Lab Findings: Abnormal Lab Results 09/14/18 09/14/18 Range/Units 06:00 06:00 WBC 14.8 H D (4.0-10.5) K/mm3 RBC 4.17 L (4.7-6.0) M/mm3 Hgb 12.6 L (13.5-18.0) gm/dL Hct 37.5 L (42.0-52.0) % Plt Count 119 L (150-450) K/mm3 Neutrophils % (Manual) 78 H (42-75) % Lymphocytes % (Manual) 7 L (20-51) % Monocytes % (Manual) 13 H (0-9) % Neutrophils # (Manual) 11.5 H (1.3-6.0) K/mm3 Lymphocytes # (Manual) 1.0 L (1.5-3.5) k/mm3 Monocytes # (Manual) 1.9 H (0.0-1.0) k/mm3 Platelet Estimate Decreased L (NORMAL) Random Glucose 129 H (70-110) mg/dL - Exam Constitutional: Present: Alert, Oriented x3, Cooperative, Elderly ENT Exam: Present: hearing grossly normal Neck: Present: supple Respiratory: Present: normal breath sounds, No rales, No wheezing Cardiovascular/Chest: Present: regular rate, rhythm, no JVD, no murmur, tachycardia Abdomen: Present: Normal bowel sounds, soft, nontender, nondistended Extremity: Present: no pedal edema, no calf tenderness Cauti Physician Documentation - Urinary Catheter Management Urethral (Charles) Date of Insertion: 09/11/18 Time of Insertion: 23:30 Date of Removal: 09/13/18 Time of Removal: 05:45 Assessment/Plan - Problems/Diagnosis (1) Fracture of femoral neck, right, closed Problem: Acute Qualifiers: Encounter type: subsequent encounter Narrative: POD # 2. continue with PT/OT. leukocytosis likely still reactive. (2) Anemia Problem: Acute Narrative: due to acute blood loss anemia (3) Thrombocytopenia Problem: Acute Narrative: likely due to DIT. will monitor . unlikely HIT. (4) Abdominal aortic aneurysm (AAA) Problem: Chronic Qualifiers: Presence of rupture: without rupture Narrative: etiology (5) Benign essential hypertension Problem: Chronic (6) CAD (coronary artery disease) Problem: Chronic Qualifiers: Coronary Disease-Associated Artery/Lesion type: [place] artery
[2018-09-14] MEDS: ENOXAPARIN SODIUM 40 MG/0.4 ML SYRG SC SCH (15:39)
[2018-09-14] MEDS: SENNOSIDES/DOCUSATE SODIUM 1 TAB TABLET PO SCH (20:41)
[2018-09-14] MEDS: ZOLPIDEM TARTRATE 5 MG TABLET PO PRN (22:41)
[2018-09-15] MEDS: ceFAZolin SODIUM 2 GM in DEXTROSE 5 % IN WATER 50 ML IV SCH ×10 (00:19→23:58)
[2018-09-15] MEDS: oxyCODONE HCL/ACETAMINOPHEN 1 TAB TABLET PO PRN ×6 (02:36→23:58)
--- NOTE | 2018-09-15 08:46 | PN ---
Subjective - Date and Time Seen Date: 09/15/18 Time: 08:40 Subjective Narrative: Patient has been ambulating up to the door. Afebrile. Objective - Review of Systems Generalized/Overall Review: Denies: Chills, Fever EENTM: Denies: Blurred Vision Respiratory: Denies: Cough, Shortness of Breath Cardiac: Denies: Chest Pain, Edema, Palpitations Abdominal: Denies: Nausea, Vomiting, Diarrhea Genitourinary Symptoms: Denies: Burning, Urgency, Frequency Musculoskeletal Complaints: Reports: Joint Pain Neurological: Denies: Anxiety, Depressed, Numbness Skin: Denies: Lesions, Rash Endocrine: Denies: Intolerance to Cold, Intolerance to Heat Misc: All systems neg except as marked - Vitals Vitals: Last Vital Signs Temp 36.9 C 09/15/18 07:27 Pulse 87 09/15/18 07:27 Resp 12 09/15/18 07:27 BP 144/76 09/15/18 07:27 Pulse Ox 93 09/15/18 07:27 - Exam Constitutional: Present: Alert, Oriented x3, Cooperative ENT Exam: Present: hard of hearing Neck: Present: supple Respiratory: Present: normal breath sounds, No rales, No wheezing Cardiovascular/Chest: Present: regular rate, rhythm, no JVD, no murmur Abdomen: Present: Normal bowel sounds, soft, nontender, nondistended Extremity: Present: no calf tenderness, pedal edema Cauti Physician Documentation - Urinary Catheter Management Urethral (Charles) Date of Insertion: 09/11/18 Time of Insertion: 23:30 Date of Removal: 09/13/18 Time of Removal: 05:45 Assessment/Plan - Problems/Diagnosis (1) Fracture of femoral neck, right, closed Problem: Acute Qualifiers: Encounter type: subsequent encounter Narrative: POD # 3. continue with PT/OT (2) Anemia Problem: Acute Narrative: acute blood loss anemia. ADDENDUM- CBC shows Hb stable and improving (3) Thrombocytopenia Problem: Acute Narrative: likely drug induced, unlikely HIT- will do a follow up CBC today. ADDENDUM: platelet is up to 141. (4) Leukocytosis (leucocytosis) Problem: Acute Narrative: likely still reactive - POD # 3. no clinical s/sx of ongoing infection. (5) Abdominal aortic aneurysm (AAA) Problem: Chronic Qualifiers: Presence of rupture: without rupture Qualified Code(s): I71.4 - Abdominal aortic aneurysm, without rupture (6) Benign essential hypertension Problem: Chronic (7) CAD (coronary artery disease) Problem: Chronic Qualifiers: Coronary Disease-Associated Artery/Lesion type: [place] artery
[2018-09-15 09:05] LABS: Hematocrit 39.3 % (42.0-52.0); Hemoglobin 13.1 gm/dL (13.5-18.0); Mean Cell Volume 89.9 fl (78-100); Mean Corpuscular Hgb Conc 33.3 g/dl (32-36); Mean Platelet Volume 10.7 fl (8-11.3); Neutrophil # 10.5 K/mm3 (1.3-6.0); Neutrophil % 78.9 % (42-75.0); Platelet Count 141 K/mm3 (150-450); Red Blood Count 4.37 M/mm3 (4.7-6.0); Red Cell Distribution Width 13.7 % (11.5-14.0); White Blood Count 13.3 K/mm3 (4.0-10.5)
[2018-09-15] MEDS: ENOXAPARIN SODIUM 40 MG/0.4 ML SYRG SC SCH (14:03)
[2018-09-15] MEDS: SENNOSIDES/DOCUSATE SODIUM 1 TAB TABLET PO SCH (20:08)
[2018-09-15] MEDS: ZOLPIDEM TARTRATE 5 MG TABLET PO PRN (22:58)
[2018-09-16] MEDS: oxyCODONE HCL/ACETAMINOPHEN 1 TAB TABLET PO PRN ×5 (04:15→21:01)
[2018-09-16] MEDS: ceFAZolin SODIUM 2 GM in DEXTROSE 5 % IN WATER 50 ML IV SCH ×2 (05:10)
--- NOTE | 2018-09-16 12:36 | PN ---
Subjective - Date and Time Seen Date: 09/16/18 Time: 12:19 Subjective Narrative: Generally doing well. This patient is 50% better than yesterday. He is eating well. He had a very hard bowel movement this morning. For now, we will wait and see if that problem resolves. He is sleeping well. Orthopedics is concerned about redness surrounding the incision site. Incision site itself looks good. Also there is bruising in the posterior upper thigh. He denies chills or sweats. His IV Ancef was stopped this morning after the 6 AM dose. Objective - Review of Systems Generalized/Overall Review: Reports: No Symptoms Reported EENTM: Denies: Eye Pain, Blurred Vision Respiratory: Denies: Cough, Shortness of Breath, Orthopnea, Wheezing Cardiac: Denies: Chest Pain, Edema, Palpitations Abdominal: Reports: Constipation. Denies: Nausea, Abdominal Pain, Diarrhea Genitourinary Symptoms: Denies: Burning, Urgency Musculoskeletal Complaints: Reports: Back Pain - Chronic. Denies: Joint Pain Neurological: Denies: Headache, Anxiety, Depressed Skin: Denies: Dryness, Lesions, Rash Endocrine: Denies: Intolerance to Cold, Intolerance to Heat Misc: All systems neg except as marked - Vitals Vitals: Last Vital Signs Temp 36.7 C 09/16/18 11:00 Pulse 91 09/16/18 11:00 Resp 20 09/16/18 11:00 BP 138/72 09/16/18 11:00 Pulse Ox 94 09/16/18 11:00 - Exam Constitutional: Present: Alert, Oriented x3, Cooperative, Well developed, Well nourished, No distress ENT Exam: Present: normal ENT inspection. Absent: hearing grossly normal Neck: Present: normal inspection. Absent: lymphadenopathy (R), lymphadenopathy (L), thyromegaly Breasts: Present: Exam deferred Respiratory: Present: lungs clear, normal breath sounds Cardiovascular/Chest: Present: regular rate, rhythm, no chest tenderness, no edema - He has no distal lower extremity edema. There is some swelling surrounding the right hip joint operation., no gallop, no JVD, no murmur Abdomen: Present: Normal bowel sounds, soft, nontender, nondistended, no hepatospenomegaly, no masses /Rectal: Present: Exam deferred Extremity: Present: no calf tenderness. Absent: normal inspection Skin Exam: Present: warm/dry, no cyanosis. Absent: normal color - Abnormal color surrounding the area of hip incision. Neurologic: Present: normal mood/affect, oriented x 3, motor weakness Appearance: Present: appropriate appearance, appropriate insight, neat, no memory impairment Eye contact: Present: cooperative, good eye contact, normal speech Thoughts: Present: normal thought pattern Cauti Physician Documentation - Urinary Catheter Management Urethral (Charles) Date of Insertion: 09/11/18 Time of Insertion: 23:30 Date of Removal: 09/13/18 Time of Removal: 05:45 Assessment/Plan Plan Narrative: His white blood count on 417 was 18.1, 19 11.7, 20 14.8, and 21 13.3 Platelet count on these days were 194, 126, 119 and 141. Our plan for the above-noted abnormality is to continue to follow along. We will repeat blood work tomorrow. Today his temp was 36.7, pulse 91, BP 138/72, respiratory rate 20 and O2 sat 94% on room air. In the late afternoon yesterday his fluid balance was +634. - Problems/Diagnosis (1) Fracture of femoral neck, right, closed Problem: Acute Qualifiers: Encounter type: subsequent encounter (2) Wound infection after surgery Problem: Suspected Narrative: An infection is not been confirmed. We will watch another day while monitoring the redness and swelling around the surgery site. We want to follow this very closely to determine if subsequent exams show resolution or progression. (3) Acute pain due to trauma Problem: Acute (4) Chronic intractable pain Problem: Chronic (5) Osteoarthritis Problem: Chronic Qualifiers: Osteoarthritis location: multiple joints Osteoarthritis type: primary Qualified Code(s): M15.0 - Primary generalized (osteo)arthritis (6) Hypertension Problem: Chronic Qualifiers: Hypertension type: essential hypertension (7) Hyperlipidemia Problem: Chronic Qualifiers: Hyperlipidemia type: mixed hyperlipidemia (8) CAD (coronary artery disease) Problem: Chronic Qualifiers: Coronary Disease-Associated Artery/Lesion type: [place] artery (9) Abdominal aortic aneurysm (AAA) Problem: Chronic Qualifiers: Presence of rupture: without rupture Qualified Code(s): I71.4 - Abdominal aortic aneurysm, without rupture (10) Thrombocytopenia Problem: Acute (11) Anemia Problem: Acute Narrative: He does not have renal failure. His GFR yesterday was 77.
--- NOTE | 2018-09-16 12:57 | PN ---
Subjective - Date and Time Seen Date: 09/16/18 Time: 07:45 Subjective Narrative: Patient reports no acute events. Patient notes he had more significant pain over the weekend, currently he states his pain is well controlled with p.o. pain medication. Patient is resting comfortably upon presentation to the room. Patient notes he has pain with ambulation, better with rest. Objective - Vitals Vitals: Last Vital Signs Temp 36.7 C 09/16/18 11:00 Pulse 91 09/16/18 11:00 Resp 20 09/16/18 11:00 BP 138/72 09/16/18 11:00 Pulse Ox 94 09/16/18 11:00 - Exam Constitutional: Present: Alert, Cooperative, No distress Extremity: Present: other - RLE--> bandages over left hip have mild serosanguineous and blood-tinged drainage, significant area of erythema primarily anterior to incision, no significant active drainage from incision, distal capillary refill brisk, sensation intact light touch, 5/5 plantar flexion dorsiflexion of his right foot, significant ecchymosis posteriorly to incision along the thigh, diffuse swelling about this area of erythema with significant tightness Eye contact: Present: cooperative Thoughts: Present: normal thought pattern Cauti Physician Documentation - Urinary Catheter Management Urethral (Charles) Date of Insertion: 09/11/18 Time of Insertion: 23:30 Date of Removal: 09/13/18 Time of Removal: 05:45 Assessment/Plan Plan Narrative: - 82 y/o male postop day #4 status post a right hip total arthroplasty after a fall with a right hip femoral neck fracture -Weightbearing as tolerated, assistive device as needed, anterior precautions -P.o. diet as tolerated -P.o. pain medication as needed -PT/OT progress as tolerated -Dressing was removed, no active drainage from incision site, serosanguineous blood-tinged fluid on bandage, significant area of erythema anterior to incision, erythema was marked dated and timed -DVT prophylaxis: Lovenox, SCDs in bed, BHAVNA hose -Chronic medical conditions per medicine -Disposition: Continue to monitor postoperative erythema, concern for hematoma versus infection versus allergy, reevaluate tomorrow plan to [facility] to [facility] - Problems/Diagnosis (1) Fracture of femoral neck, right, closed Problem: Acute Qualifiers: Encounter type: subsequent encounter
[2018-09-16] MEDS: ENOXAPARIN SODIUM 40 MG/0.4 ML SYRG SC SCH (14:28)
[2018-09-16] MEDS: SENNOSIDES/DOCUSATE SODIUM 1 TAB TABLET PO SCH (20:03)
[2018-09-16] MEDS ORDERED: traZODone HCL 50 MG TABLET PO SCH (21:00)
[2018-09-17] MEDS: oxyCODONE HCL/ACETAMINOPHEN 1 TAB TABLET PO PRN ×3 (01:37→10:12)
[2018-09-17 05:30] LABS: Hematocrit 37.3 % (42.0-52.0); Hemoglobin 12.3 gm/dL (13.5-18.0); Mean Cell Volume 90.1 fl (78-100); Mean Corpuscular Hemoglobin 29.7 pg (27-31); Mean Platelet Volume 10.4 fl (8-11.3); Neutrophil # 5.5 K/mm3 (1.3-6.0); Neutrophil % 65.3 % (42-75.0); Platelet Count 201 K/mm3 (150-450); Red Blood Count 4.14 M/mm3 (4.7-6.0); Red Cell Distribution Width 13.8 % (11.5-14.0); White Blood Count 8.4 K/mm3 (4.0-10.5)
[2018-09-17 05:38] LABS: BUN/Creatinine Ratio 16.3 (9.0-21.6); Estimated Creat Clear 70.3
[2018-09-17 05:39] LABS: Anion Gap 11.3 mmol/L (6.8-13.8); Calcium * 8.5 mg/dL (7.9-10.9); Carbon Dioxide 27.8 mmol/L (24-32.6); Potassium 4.1 mmol/L (3.4-4.6)
--- NOTE | 2018-09-17 07:52 | PN ---
Subjective - Date and Time Seen Date: 09/17/18 Time: 07:49 Subjective Narrative: Patient reports no acute events. He notes mild improvement of his hip pain. He has been up with therapy, limited due to pain. Pain is well controlled or PO pain medication. Objective - Vitals Vitals: Last Vital Signs Temp 36.9 C 09/17/18 06:07 Pulse 87 09/17/18 06:07 Resp 16 09/17/18 06:07 BP 135/73 09/17/18 06:07 Pulse Ox 94 09/17/18 06:07 - Abnormal Lab Findings Abnormal Lab Findings: Abnormal Lab Results 09/17/18 Range/Units 05:25 RBC 4.14 L (4.7-6.0) M/mm3 Hgb 12.3 L (13.5-18.0) gm/dL Hct 37.3 L (42.0-52.0) % Immature Gran % (Auto) 0.50 H (0.001-0.429) % Immature Gran # (Auto) 0.04 H (0.000-0.0310) K/mm3 Lymphocytes % 13.6 L (20-51) % Monocytes % 13.6 H (0.0-9) % Eosinophils % 6.4 H (0.0-3.0) % Lymphocytes # 1.15 L (1.5-3.5) k/mm3 Monocytes # 1.2 H (0.0-1.0) k/mm3 - Exam Constitutional: Present: Alert, Cooperative, No distress Respiratory: Present: no respiratory distress Extremity: Present: other - RLE--> significant area of erythema and pitting edema anterior to incision, significant ecchymosis posteriorly, mild weaping of wound on to bandage, serosangous fluid, distal capillary refill brisk, SILT, PF/DF 5/5 Appearance: Present: appropriate appearance Eye contact: Present: cooperative Cauti Physician Documentation - Urinary Catheter Management Urethral (Charles) Date of Insertion: 09/11/18 Time of Insertion: 23:30 Date of Removal: 09/13/18 Time of Removal: 05:45 Assessment/Plan Plan Narrative: - 82 y/o male postop day #5 status post a right hip total arthroplasty after a fall with a right hip femoral neck fracture -Weightbearing as tolerated, assistive device as needed, anterior precautions -P.o. diet as tolerated -P.o. pain medication as needed, Percocet 5/325 mg 1-2 tabs every 4-6 hours p.o. as needed for pain -PT/OT progress as tolerated -DVT prophylaxis: Lovenox until 2 weeks post-op followed by 325mg aspirin, BHAVNA medel -Chronic medical conditions per medicine -Disposition: Discharge to [facility] for continue PT/OT, f/u in orthopedic outpatient clinic on 09/20/18 -Notes significant amount of pitting edema anteriorly to incision, bandages were removed, no significant drainage, mild weeping of serosanguineous fluid from the wound we will continue to monitor, this is believed to be due to significant amount of edema postoperatively, note patient's white count has improved to 8.4 and is continually trended down, antibiotics have been stopped for 24 hours with improving symptoms as well as mild decrease in erythema compared to marked line on 09/16/2018 we will continue to monitor closely with follow-up on 09/20/2018, continue to monitor dressing if significant saturation can change with sterile gauze and Tegaderm dressing, please call orthopedic outpatient clinic with any acute concerns - Problems/Diagnosis (1) Fracture of femoral neck, right, closed Problem: Acute Qualifiers: Encounter type: subsequent encounter
--- NOTE | 2018-09-17 08:07 | DS ---
<Jake Tamayo - Last Filed: 09/17/18 09:42> Results and Findings: Lab Pending Results 09/11/18 21:18: WBC 18.1 H, RBC 5.51, Hgb 16.5, Hct 48.8, MCV 88.6, MCH 29.9, MCHC 33.8, RDW 13.7, Plt Count 184, MPV 10.2, Immature Gran % (Auto) 0.40, Immature Gran # (Auto) 0.07 H, Neutrophils % 87.7 H, Lymphocytes % 5.2 L, Monocy dillon % 6.0, Eosinophils % 0.3, Basophils % 0.4, Nucleated RBC % 0.0, Neutrophils # 15.9 H, Lymphocytes # 0.95 L, Monocytes # 1.1 H, Eosinophils # 0.1, Absolute Basophils 0.1 09/11/18 21:18: Sodium 143 H, Plasma Sodium 144 H, Potassium 3.7, Chloride 105, Carbon Dioxide 28.8, Anion Gap 12.9, BUN 20, Creatinine 1.07, Est GFR (Non-Af Amer) 71, BUN/Creatinine Ratio 18.7, Random Glucose 140 H, Calcium 9.7, Calcium Adj for Albumin 9.4, Total Bilirubin 1.0, AST 24, ALT 32, Alkaline Phosphatase 117, Total Protein 7.2, Albumin 4.0 09/13/18 05:03: WBC 11.7 H D, RBC 4.51 L, Hgb 13.5, Hct 41.0 L, MCV 90.9, MCH 29.9, MCHC 32.9, RDW 13.7, Plt Count 126 L, MPV 10.3, Immature Gran % (Auto) 0.30, Immature Gran # (Auto) 0.04 H, Neutrophils % 80.3 H, Lymphocytes % 6.6 L, Monocytes % 9.7 H, Eosinophils % 2.8, Basophils % 0.3, Nucleated RBC % 0.0, Neutrophils # 9.4 H, Lymphocytes # 0.77 L, Monocytes # 1.1 H, Eosinophils # 0.3, Absolute Basophils 0.0 09/13/18 05:03: Sodium 139, Plasma Sodium 139, Potassium 3.6, Chloride 100, Carbon Dioxide 30.3, Anion Gap 12.3, BUN 13, Creatinine 1.06, Est GFR (Non-Af Amer) 71, BUN/Creatinine Ratio 12.3, Random Glucose 131 H, Calcium 7.9 09/14/18 06:00: WBC 14.8 H D, RBC 4.17 L, Hgb 12.6 L, Hct 37.5 L, MCV 89.9, MCH 30.2, MCHC 33.6, RDW 13.7, Plt Count 119 L, MPV 10.9, Neutrophils % (Manual) 78 H, Lymphocytes % (Manual) 7 L, Monocytes % (Manual) 13 H, Eosinophils % (Manual) 2, Neutrophils # (Manual) 11.5 H, Lymphocytes # (Manual) 1.0 L, Monocytes # (Manual) 1.9 H, Eosinophils # (Manual) 0.3, Dohle Bodies 1+, Platelet Estimate Decreased L, RBC Morphology Normal 09/14/18 06:00: Sodium 139, Plasma Sodium 139, Potassium 3.5, Chloride 103, Ca rbon Dioxide 30.3, Anion Gap 9.2, BUN 11, Creatinine 0.99, Est GFR (Non-Af Amer) 77, BUN/Creatinine Ratio 11.1, Random Glucose 129 H, Calcium 8.2 09/15/18 09:01: WBC 13.3 H, RBC 4.37 L, Hgb 13.1 L, Hct 39.3 L, MCV 89.9, MCH 30.0, MCHC 33.3, RDW 13.7, Plt Count 141 L, MPV 10.7, Immature Gran % (Auto) 0.40, Immature Gran # (Auto) 0.05 H, Neutrophils % 78.9 H, Lymphocytes % 7.8 L, Monocytes % 9.5 H, Eosinophils % 3.1 H, Basophils % 0.3, Nucleated RBC % 0.0, Neutrophils # 10.5 H, Lymphocytes # 1.03 L, Monocytes # 1.3 H, Eosinophils # 0.4, Absolute Basophils 0.0 09/17/18 05:25: WBC 8.4 D, RBC 4.14 L, Hgb 12.3 L, Hct 37.3 L, MCV 90.1, MCH 29.7, MCHC 33.0, RDW 13.8, Plt Count 201, MPV 10.4, Immature Gran % (Auto) 0.50 H, Immature Gran # (Auto) 0.04 H, Neutrophils % 65.3, Lymphocytes % 13.6 L, Monocytes % 13.6 H, Eosinophils % 6.4 H, Basophils % 0.6, Nucleated RBC % 0.0, Neutrophils # 5.5, Lymphocytes # 1.15 L, Monocytes # 1.2 H, Eosinophils # 0.5, Absolute Basophils 0.1 09/17/18 05:25: Sodium 140, Plasma Sodium 140, Potassium 4.1, Chloride 105, Carbon Dioxide 27.8, Anion Gap 11.3, BUN 15, Creatinine 0.92, Est GFR (Non-Af Amer) 84, BUN/Creatinine Ratio 16.3, Random Glucose 103, Calcium 8.5 Disposition: SNF Condition: Good Referrals: Mauricio Kirby MD [Primary Care Provider] - Problem Oriented Discharge Instructions to Patient/Family: Hip Pain, Total Hip Replacement, [id number] Additional Patient Instructions (free text): [facility] SNF for PT and OT therapies to evaluate and treat, Please call and fax discharge orders to them. Follow up orthopedics [facility] Dr. Mcmahon office this Wednesday 09/20 at 10:15am. Hemogram 1 week. Call as needed for problems or questions. Weightbearing as tolerated, assistive device as needed, anterior precautions -P.o. diet as tolerated -P.o. pain medication as needed, Percocet 5/325 mg 1-2 tabs every 4-6 hours p.o. as needed for pain -PT/OT progress as tolerated -DVT prophylaxis: Lovenox until 2 weeks post-op followed by 325mg aspirin, BHAVNA hose -Keflex 500 mg QID for 10 days -Chronic medical conditions per medicine -Disposition: Discharge to [facility] facility for continue PT/OT, f/u in orthopedic outpatient clinic on 09/20/18 -Continue to monitor dressing if significant saturation can change with sterile gauze and Tegaderm dressing, please call orthopedic outpatient clinic with any acute concerns office visit with Dr. Albert in about one week. 09/23 at 1:45pm. Prescriptions (Any new or edited meds): Aspirin [Aspirin EC] 325 mg PO DAILY #30 tablet. Cephalexin [Keflex] 500 mg PO QID #40 cap Enoxaparin Sodium [Lovenox] 40 mg SQ DAILY 14 Days #14 syringe oxyCODONE HCL/ACETAMINOPHEN [Percocet 5 MG/325 MG] 1 - 2 tab PO Q4H PRN #40 tab PRN Reason: Pain Complete Home Medications List: Complete Home Medication List: Atorvastatin Calcium [Lipitor] 80 mg PO DAILY 04/10/12 amLODIPine BESYLATE [Norvasc] 20 mg PO DAILY 04/10/12 Cholecalciferol (Vitamin D3) [Vitamin D3] 1,000 unit PO DAILY 01/29/15 losartan 50 mg-hydrochlorothiazide 12.5 mg tablet 1 tab PO DAILY 03/25/18 trazodone 100 mg tablet 100 - 200 mg PO HS tab 03/25/18 Aspirin [Aspirin EC] 325 mg PO DAILY #30 tablet.dr 09/17/18 Cephalexin [Keflex] 500 mg PO QID #40 cap 09/17/18 Enoxaparin Sodium [Lovenox] 40 mg SQ DAILY 14 Days #14 syringe 09/17/18 oxyCODONE HCL/ACETAMINOPHEN [Percocet 5 MG/325 MG] 1 - 2 tab PO Q4H PRN #40 tab 09/17/18 Amb Orders for Discharge: Hemogram Time Frame: 1 Week, Location: Laboratory <Mauricio Kirby - Last Filed: 09/17/18 15:08> (1) Fracture of femoral neck, right, closed Problem: Acute Qualifiers: Encounter type: subsequent encounter (2) Wound infection after surgery Problem: Ruled-out (3) Acute pain due to trauma Problem: Acute (4) Chronic intractable pain Problem: Chronic (5) Osteoarthritis Problem: Chronic Qualifiers: Osteoarthritis location: multiple joints Osteoarthritis type: primary Qualified Code(s): M15.0 - Primary generalized (osteo)arthritis (6) Hypertension Problem: Chronic Qualifiers: Hypertension type: essential hypertension Qualified Code(s): I10 - Essenti al (primary) hypertension (7) Hyperlipidemia Problem: Chronic Qualifiers: Hyperlipidemia type: mixed hyperlipidemia Qualified Code(s): E78.2 - Mixed hyperlipidemia (8) CAD (coronary artery disease) Problem: Chronic Qualifiers: Coronary Disease-Associated Artery/Lesion type: [place] artery (9) Abdominal aortic aneurysm (AAA) Problem: Chronic Qualifiers: Presence of rupture: without rupture Qualified Code(s): I71.4 - Abdominal aortic aneurysm, without rupture (10) Thrombocytopenia Problem: Resolved (11) Anemia Problem: Acute Description of Stay: Aj Herrmann is an 82-year-old man who has a history of TIA in 2003, 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 Towards the end of last year in our emergency room, by CT scan and ultrasound, he was found to have thickening of his gallbladder wall, with no symptoms thereafter. The evening of admission while working in his barn doing chores, he tripped on a mat and fell directly onto his right hip. He immediately had severe pain which persisted. He remained unattended in the barn for over an hour, until his came to check where he was. He was brought immediately to the emergency room, where diagnosis was made, and he was treated including pain medication. His hip was repaired. The surgery went well and he has been steadily improving since. There was some concern two days ago for infection in the surgical wound, however this morning it appears better, and his previously elevated wbc count has normalized. His Hgb is 12.3 this morning and chemistries are normal. He is afebrile. BP 135/73, pulse 87, respiratory rate 16 and RA O2 sat 94%. He feels better with pain. He's eating well, brief constipation has resolved, he is ambulating in the halls with assistance. He normally takes tramadol for chronic osteoarthritic pain. The current plan is for rehab at [facility] [place] and close followup with tony llamas 09/20. Procedures Performed: see notes below List Procedures: repair right hip fracture Results and Findings: Lab Pending Results 09/11/18 21:18: WBC 18.1 H, RBC 5.51, Hgb 16.5, Hct 48.8, MCV 88.6, MCH 29.9, MCHC 33.8, RDW 13.7, Plt Count 184, MPV 10.2, Immature Gran % (Auto) 0.40, Immature Gran # (Auto) 0.07 H, Neutrophils % 87.7 H, Lymphocytes % 5.2 L, Monocytes % 6.0, Eosinophils % 0.3, Basophils % 0.4, Nucleated RBC % 0.0, N eutrophils # 15.9 H, Lymphocytes # 0.95 L, Monocytes # 1.1 H, Eosinophils # 0.1, Absolute Basophils 0.1 09/11/18 21:18: Sodium 143 H, Plasma Sodium 144 H, Potassium 3.7, Chloride 105, Carbon Dioxide 28.8, Anion Gap 12.9, BUN 20, Creatinine 1.07, Est GFR (Non-Af Amer) 71, BUN/Creatinine Ratio 18.7, Random Glucose 140 H, Calcium 9.7, Calcium Adj for Albumin 9.4, Total Bilirubin 1.0, AST 24, ALT 32, Alkaline Phosphatase 117, Total Protein 7.2, Albumin 4.0 09/13/18 05:03: WBC 11.7 H D, RBC 4.51 L, Hgb 13.5, Hct 41.0 L, MCV 90.9, MCH 29.9, MCHC 32.9, RDW 13.7, Plt Count 126 L, MPV 10.3, Immature Gran % (Auto) 0.30, Immature Gran # (Auto) 0.04 H, Neutrophils % 80.3 H, Lymphocytes % 6.6 L, Monocytes % 9.7 H, Eosinophils % 2.8, Basophils % 0.3, Nucleated RBC % 0.0, Neutrophils # 9.4 H, Lymphocytes # 0.77 L, Monocytes # 1.1 H, Eosinophils # 0.3, Absolute Basophils 0.0 09/13/18 05:03: Sodium 139, Plasma Sodium 139, Potassium 3.6, Chloride 100, Carbon Dioxide 30.3, Anion Gap 12.3, BUN 13, Creatinine 1.06, Est GFR (Non-Af Amer) 71, BUN/Creatinine Ratio 12.3, Random Glucose 131 H, Calcium 7.9 09/14/18 06:00: WBC 14.8 H D, RBC 4.17 L, Hgb 12.6 L, Hct 37.5 L, MCV 89.9, MCH 30.2, MCHC 33.6, RDW 13.7, Plt Count 119 L, MPV 10.9, Neutrophils % (Manual) 78 H, Lymphocytes % (Manual) 7 L, Monocytes % (Manual) 13 H, Eosinophils % (Manual) 2, Neutrophils # (Manual) 11.5 H, Lymphocytes # (Manual) 1.0 L, Monocytes # (Manual) 1.9 H, Eosinophils # (Manual) 0.3, Dohle Bodies 1+, Platelet Estimate Decreased L, RBC Morphology Normal 09/14/18 06:00: Sodium 139, Plasma Sodium 139, Potassium 3.5, Chloride 103, Carbon Dioxide 30.3, Anion Gap 9.2, BUN 11, Creatinine 0.99, Est GFR (Non-Af Amer) 77, BUN/Creatinine Ratio 11.1, Random Glucose 129 H, Calcium 8.2 09/15/18 09:01: WBC 13.3 H, RBC 4.37 L, Hgb 13.1 L, Hct 39.3 L, MCV 89.9, MCH 30.0, MCHC 33.3, RDW 13.7, Plt Count 141 L, MPV 10.7, Immature Gran % (Auto) 0.40, Immature Gran # (Auto) 0.05 H, Neutrophils % 78.9 H, Lymphocytes % 7.8 L, Monocytes % 9.5 H, Eosinophils % 3.1 H, Basophils % 0.3, Nucleated RBC % 0.0, Neutrophils # 10.5 H, Lymphocytes # 1.03 L, Monocytes # 1.3 H, Eosinophils # 0.4, Absolute Basophils 0.0 09/17/18 05:25: WBC 8.4 D, RBC 4.14 L, Hgb 12.3 L, Hct 37.3 L, MCV 90.1, MCH 29.7, MCHC 33.0, RDW 13.8, Plt Count 201, MPV 10.4, Immature Gran % (Auto) 0.50 H, Immature Gran # (Auto) 0.04 H, Neutrophils % 65.3, Lymphocytes % 13.6 L, Monocytes % 13.6 H, Eosinophils % 6.4 H, Basophils % 0.6, Nucleated RBC % 0.0, Neutrophils # 5.5, Lymphocytes # 1.15 L, Monocytes # 1.2 H, Eosinophils # 0.5, Absolute Basophils 0.1 09/17/18 05:25: Sodium 140, Plasma Sodium 140, Potassium 4.1, Chloride 105, Carbon Dioxide 27.8, Anion Gap 11.3, BUN 15, Creatinine 0.92, Est GFR (Non-Af Amer) 84, BUN/Creatinine Ratio 16.3, Random Glucose 103, Calcium 8.5 Discharge Location: [facility] Level of Care: SNF Discharge Activity: Activity as tolerated Discharge Diet: General/regular food Jail Therapy: Physicial Therapy, Occupation Therapy Consultation Done:: Orthopedics
[2018-09-17 13:40] VITALS: BP 126/69
== END 2018-09-17 13:26 | DRG 470 ==
LOC: ER 20:49 → MS 22:29
PROVIDERS: ADMIT Family Medicine; ATTEND Allergy & Immunology
DX: I25.10 Atherosclerotic heart disease of native coronary artery without angina pectoris; I10 Essential (primary) hypertension; D69.6 Thrombocytopenia, unspecified; Z87.891 Personal history of nicotine dependence; Y92.71 Barn as the place of occurrence of the external cause; D64.9 Anemia, unspecified; S72.001A Fracture of unspecified part of neck of right femur, initial encounter for closed fracture; K21.9 Gastro-esophageal reflux disease without esophagitis; G89.21 Chronic pain due to trauma; E78.5 Hyperlipidemia, unspecified; I71.4 Abdominal aortic aneurysm, without rupture; W01.0XXA Fall on same level from slipping, tripping and stumbling without subsequent striking against object, initial encounter; M15.9 Polyosteoarthritis, unspecified
CPT/HCPCS: 36415; 71010; 71045; 73502; 80048; 80053; 85007; 85025; 93005; 96374; 96375; 96376; 97110; 97116; 97161; 97165; 97530; 97535; 99285; J2405